=== PATIENT | female | born 1945 | race Caucasian/White ===

== ENCOUNTER 2024-01-03 09:48 | Inpatient (IN) | payer MEDICARE ==
[2024-01-03 10:53] LABS: Basophils % (A) 0 %; Eosinophils # (A) 0.1 k/uL (0-0.7); Eosinophils % (A) 1 %; HCT 41.4 % (34.0-46.0); HGB 13.8 gm/dL (11.4-16.0); Lymphocytes # (A) 1.3 k/uL (1.0-4.8); Lymphocytes % (A) 12 %; MCH 32.3 pg (25.0-35.0); MCHC 33.4 g/dL (31.0-37.0); MCV 96.7 fL (80.0-100.0); Mean Platelet Volume 8.2; Monocytes # (A) 0.8 k/uL (0-1.0); Monocytes % (A) 7 %; Neutrophils # (A) 8.9 k/uL (1.3-7.7); Neutrophils % (A) 79 %; Platelet Count 242 k/uL (150-450); RBC 4.28 m/uL (3.80-5.40); RDW 13.4 % (11.5-15.5); WBC 11.2 k/uL (3.8-10.6)
--- NOTE | 2024-01-03 10:58 | ED ---
General Adult HPI - General Chief complaint: Skin/Abscess/Foreign Body Stated complaint: Infection Time Seen by Provider: 01/03/24 10:00 Source: patient, EMS, RN notes reviewed, old records reviewed Mode of arrival: EMS - History of Present Illness Initial comments: This is a 78-year-old female who presents to the emergency department from a custodial they noted that she has this scalp mass and there was also some maggots around the mass with a central to the emergency department. Patient is unaware of this patient states occasionally it feels like pins pricking her head but other than that she has no complaints. There is been no history of any fever she denies any chest pain difficulty breathing she denies any cough. She denies any abdominal pain - Related Data Allergies Allergy/AdvReac Type Severity Reaction Status Date / Time magnesium hydroxide Allergy Unknown Verified 01/03/24 11:55 [From Milk of Magnesia] Sulfa (Sulfonamide Allergy Unknown Verified 01/03/24 11:55 Antibiotics) Review of Systems ROS Statement: Those systems with pertinent positive or pertinent negative responses have been documented in the HPI. ROS Other: All systems not noted in ROS Statement are negative. Past Medical History Additional Past Medical History / Comment(s): Pt states no medical hx, take no medications History of Any Multi-Drug Resistant Organisms: None Reported Past Surgical History: Adenoidectomy, Tonsillectomy Past Psychological History: Unable to Obtain General Exam - General Exam Comments Initial Comments: GENERAL: Patient is well-developed and well-nourished. Patient is nontoxic and well- hydrated and is in no acute distress. ENT: Neck is soft and supple. No significant lymphadenopathy is noted. Oropharynx is clear. Moist mucous membranes. Neck has full range of motion without eliciting any pain. Patient has a growth on the right side of her scalp measuring about 2 and half centimeters in diameter and it is pedunculated off the scalp on the parietal region and there are numerous maggots around the mass EYES: The sclera were anicteric and conjunctiva were pink and moist. Extraocular movements were intact and pupils were equal round and reactive to light. Eyelids were unremarkable. PULMONARY: Unlabored respirations. Good breath sounds bilaterally. No audible rales rhonchi or wheezing was noted. CARDIOVASCULAR: There is a regular rate and rhythm without any murmurs gallops or rubs. ABDOMEN: Soft and nontender with normal bowel sounds. SKIN: Skin is clear with no lesions or rashes and otherwise unremarkable. NEUROLOGIC: Patient is alert and oriented x3. Cranial nerves II through XII are grossly intact. Motor and sensory are also intact. Normal speech, volume and content. Symmetrical smile. MUSCULOSKELETAL: Normal extremities with adequate strength and full range of motion. LYMPHATICS: No significant lymphadenopathy is noted PSYCHIATRIC: Normal psychiatric evaluation. Course Vital Signs 01/03/24 09:56 Temperature 99.2 F Pulse Rate 96 Respiratory 18 Rate Blood Pressure 149/78 O2 Sat by Pulse 99 Oximetry Medical Decision Making - Medical Decision Making Was pt. sent in by a medical professional or institution (, JOVANI, PROPERTY MANAGEMENT ASSISTANT, urgent care, hospital, or custodial...) When possible be specific @ -detention sent the patient in Did you speak to anyone other than the patient for history (EMS, parent, family, police, friend...)? What history was obtained from this source @ -No Did you review nursing and triage notes (agree or disagree)? Why? @ -I reviewed and agree with nursing and triage notes Were old charts reviewed (outside hosp., previous admission, EMS record, old EKG, old radiological studies, urgent care reports/EKG's, custodial records)? Report findings @ -No old charts were reviewed Differential Diagnosis? @ -Chest pain, altered mental status, abdominal pain women, abdominal pain men, vaginal bleeding, weakness, fever, dyspnea, syncope, headache, dizziness, GI bleed, back pain, seizure, CVA, palpatations, mental health, musculoskeletal EKG interpreted by me (3pts min.). @ -As above X-rays interpreted by me (1pt min.). @ -None done CT interpreted by me (1pt min.). @ -None done U/S interpreted by me (1pt. min.). @ -None done What testing was considered but not performed or refused? (CT, X-rays, U/S, labs)? Why? @ -None What meds were considered but not given or refused? Why? @ -None Did you discuss the management of the patient with other professionals (professionals i.e. JOVANI Vides, PROPERTY MANAGEMENT ASSISTANT, lab, RT, psych nurse, psychiatric social worker, body make up artist, teacher, control officer manager, mental health case manager)? Give summary @ -I spoke with Dr. Recinos and he agreed to admit the patient admit the patient consulted medicine Was smoking cessation discussed for >3mins.? @ -No Was critical care preformed (if so, how long)? @ -No Were there social determinants of health that impacted care today? How? (Homelessness, low income, unemployed, alcoholism, drug addiction, transp ortation, low edu. Level, literacy, decrease access to med. care, [facility], rehab)? @ -No Was there de-escalation of care discussed even if they declined (Discuss DNR or withdrawal of care, Hospice)? DNR status @ -No What co-morbidities impacted this encounter? (DM, HTN, Smoking, COPD, CAD, Cancer, CVA, ARF, Chemo, Hep., AIDS, mental health diagnosis, sleep apnea, morbid obesity)? @ -None Was patient admitted / discharged? Hospital course, mention meds given and route, prescriptions, significant lab abnormalities, going to OR and other pertinent info. @ -Patient has a pedunculated scalp mass on the right side in the parietal region. The mass is inundated with maggots I spoke with the surgeon on-call and he agreed to admit the patient and asked for medicine to be consulted Undiagnosed new problem with uncertain prognosis? @ -No Drug Therapy requiring intensive monitoring for toxicity (Heparin, Nitro, Insulin, Cardizem)? @ -No Were any procedures done? @ -No Diagnosis/symptom? @ -Pedunculated scalp mass Acute, or Chronic, or Acute on Chronic? @ -Acute on chronic Uncomplicated (without systemic symptoms) or Complicated (systemic symptoms)? @ -Complicated Side effects of treatment? @ -No Exacerbation, Progression, or Severe Exacerbation? @ -No Poses a threat to life or bodily function? How? (Chest pain, USA, GA, pneumonia, PE, COPD, DKA, ARF, appy, cholecystitis, CVA, Diverticulitis, Homicidal, Suicidal, threat to staff... and all critical care pts) @ -No - Lab Data Result diagrams: 01/03/24 10:25 01/03/24 10:25 Lab Results 01/03/24 01/03/24 01/03/24 Range/Units 10:25 10:25 10:25 WBC 11.2 H (3.8-10.6) k/uL RBC 4.28 (3.80-5.40) m/uL Hgb 13.8 (11.4-16.0) gm/dL Hct 41.4 (34.0-46.0) % MCV 96.7 (80.0-100.0) fL MCH 32.3 (25.0-35.0) pg MCHC 33.4 (31.0-37.0) g/dL RDW 13.4 (11.5-15.5) % Plt Count 242 (150-450) k/uL MPV 8.2 Neutrophils % 79 % Lymphocytes % 12 % Monocytes % 7 % Eosinophils % 1 % Basophils % 0 % Neutrophils # 8.9 H (1.3-7.7) k/uL Lymphocytes # 1.3 (1.0-4.8) k/uL Monocytes # 0.8 (0-1.0) k/uL Eosinophils # 0.1 (0-0.7) k/uL Basophils # 0.0 (0-0.2) k/uL Sodium 134 L (137-145) mmol/L Potassium 4.2 (3.5-5.1) mmol/L Chloride 101 (98-107) mmol/L Carbon Dioxide 26 (22-30) mmol/L Anion Gap 7 mmol/L BUN 12 (7-17) mg/dL Creatinine 0.66 (0.52-1.04) mg/dL Est GFR (CKD-EPI)AfAm >90 (>60 ml/min/1.73 sqM) Est GFR (CKD-EPI)NonAf 86 (>60 ml/min/1.73 sqM) Glucose 95 (74-99) mg/dL Plasma Lactic Acid Ramírez 1.7 (0.7-2.0) mmol/L Calcium 9.4 (8.4-10.2) mg/dL Total Bilirubin 1.2 (0.2-1.3) mg/dL AST 28 (14-36) U/L ALT 15 (4-34) U/L Alkaline Phosphatase 77 (38-126) U/L Total Protein 7.5 (6.3-8.2) g/dL Albumin 4.4 (3.5-5.0) g/dL Disposition Clinical Impression: Scalp mass, Infestation, maggots Disposition: ADMITTED IP TO THIS HOSP Referrals: None,Stated [REFERRING] - 1-2 days Time of Disposition: 12:53
[2024-01-03 11:10] LABS: ALT 15 U/L (4-34); AST 28 U/L (14-36); African American GFR (CKD) >90 (>60 ml/min/1.73 sqM); Albumin 4.4 g/dL (3.5-5.0); Alkaline Phosphatase 77 U/L (38-126); Anion Gap 7 mmol/L; Blood Urea Nitrogen 12 mg/dL (7-17); Calcium 9.4 mg/dL (8.4-10.2); Carbon Dioxide 26 mmol/L (22-30); Chloride 101 mmol/L (98-107); Glucose 95 mg/dL (74-99); Non-African American GFR(CKD) 86 (>60 ml/min/1.73 sqM); Potassium 4.2 mmol/L (3.5-5.1); Sodium 134 mmol/L (137-145); Total Bilirubin 1.2 mg/dL (0.2-1.3); Total Protein 7.5 g/dL (6.3-8.2)
--- NOTE | 2024-01-03 19:13 | P.GSHP ---
History of Present Illness H&P Date: 01/03/24 - History of Present Illness This is a 78-year-old female who presents to the emergency department from a residential after they noted that she has this scalp mass and there was also some maggots around the mass with a central to the emergency department. Patient is unaware of this patient states occasionally it feels like pins pricking her head but other than that she has no complaints. There is been no history of any fever, she denies any chest pain, denies difficulty breathing, and she denies any cough. She denies any abdominal pain Review of Systems ROS Statement: Those systems with pertinent positive or pertinent negative responses have been documented in the HPI. ROS Other: All systems not noted in ROS Statement are negative. Past Medical History Additional Past Medical History / Comment(s): Pt states no medical hx, take no medications History of Any Multi-Drug Resistant Organisms: None Reported Past Surgical History: Adenoidectomy, Tonsillectomy Past Psychological History: Unable to Obtain General Exam - General Exam Comments Initial Comments: GENERAL: Patient is well-developed and well-nourished. Patient is nontoxic and well- hydrated and is in no acute distress. ENT: Neck is soft and supple. No significant lymphadenopathy is noted. Oropharynx is clear. Moist mucous membranes. Neck has full range of motion without eliciting any pain. Patient has a growth on the right side of her scalp measuring about 2 and half centimeters in diameter and it is pedunculated off the scalp on the parietal region and there are numerous maggots around the mass EYES: The sclera were anicteric and conjunctiva were pink and moist. Extraocular movements were intact and pupils were equal round and reactive to light. Eyelids were unremarkable. PULMONARY: Unlabored respirations. Good breath sounds bilaterally. No audible rales rhonchi or wheezing was noted. CARDIOVASCULAR: There is a regular rate and rhythm without any murmurs gallops or rubs. ABDOMEN: Soft and nontender with normal bowel sounds. SKIN: Friable Scalp Mass. NEUROLOGIC: Patient is alert and oriented x3. Cranial nerves II through XII are grossly intact. Motor and sensory are also intact. Normal speech, volume and content. Symmetrical smile. MUSCULOSKELETAL: Normal extremities with adequate strength and full range of motion. LYMPHATICS: No significant lymphadenopathy is noted PSYCHIATRIC: Normal psychiatric evaluation. 78 year old female with friable scalp mass concerning for malignancy - Scalp was thoroughly cleaned and washed off - Regular Diet - Possible surgical biopsy during this admission - Medicine consult for medical management Past Medical History Additional Past Medical History / Comment(s): Pt states no medical hx, take no medications History of Any Multi-Drug Resistant Organisms: None Reported Past Surgical History: Adenoidectomy, Tonsillectomy Past Psychological History: Unable to Obtain Smoking Status: Never smoker Past Alcohol Use History: None Reported Past Drug Use History: None Reported Medications and Allergies Home Medications Medication Instructions Recorded Confirmed Type Haloperidol Decanoate [Haldol D] 50 mg IM Q30D 01/03/24 01/03/24 History Losartan [Cozaar] 25 mg PO DAILY 01/03/24 01/03/24 History Vitamin B-12 100mcg Tab 100 mcg PO DAILY 01/03/24 01/03/24 History Allergies Allergy/AdvReac Type Severity Reaction Status Date / Time magnesium hydroxide Allergy Unknown Verified 01/03/24 13:05 [From Milk of Magnesia] Sulfa (Sulfonamide Allergy Unknown Verified 01/03/24 13:05 Antibiotics) Surgical - Exam Vital Signs Temp Pulse Resp BP Pulse Ox 99.2 F 96 18 149/78 99 01/03/24 09:56 01/03/24 09:56 01/03/24 09:56 01/03/24 09:56 01/03/24 09:56 Results - Labs 01/03/24 10:25 01/03/24 10:25 Abnormal Lab Results - Last 24 Hours (Table) 01/03/24 01/03/24 Range/Units 10:25 10:25 WBC 11.2 H (3.8-10.6) k/uL Neutrophils # 8.9 H (1.3-7.7) k/uL Sodium 134 L (137-145) mmol/L Diabetes panel 01/03/24 Range/Units 10:25 Sodium 134 L (137-145) mmol/L Potassium 4.2 (3.5-5.1) mmol/L Chloride 101 (98-107) mmol/L Carbon Dioxide 26 (22-30) mmol/L BUN 12 (7-17) mg/dL Creatinine 0.66 (0.52-1.04) mg/dL Glucose 95 (74-99) mg/dL Calcium 9.4 (8.4-10.2) mg/dL AST 28 (14-36) U/L ALT 15 (4-34) U/L Alkaline Phosphatase 77 (38-126) U/L Total Protein 7.5 (6.3-8.2) g/dL Albumin 4.4 (3.5-5.0) g/dL Calcium panel 01/03/24 Range/Units 10:25 Calcium 9.4 (8.4-10.2) mg/dL Albumin 4.4 (3.5-5.0) g/dL Pituitary panel 01/03/24 Range/Units 10:25 Sodium 134 L (137-145) mmol/L Potassium 4.2 (3.5-5.1) mmol/L Chloride 101 (98-107) mmol/L Carbon Dioxide 26 (22-30) mmol/L BUN 12 (7-17) mg/dL Creatinine 0.66 (0.52-1.04) mg/dL Glucose 95 (74-99) mg/dL Calcium 9.4 (8.4-10.2) mg/dL Adrenal panel 01/03/24 Range/Units 10:25 Sodium 134 L (137-145) mmol/L Potassium 4.2 (3.5-5.1) mmol/L Chloride 101 (98-107) mmol/L Carbon Dioxide 26 (22-30) mmol/L BUN 12 (7-17) mg/dL Creatinine 0.66 (0.52-1.04) mg/dL Glucose 95 (74-99) mg/dL Calcium 9.4 (8.4-10.2) mg/dL Total Bilirubin 1.2 (0.2-1.3) mg/dL AST 28 (14-36) U/L ALT 15 (4-34) U/L Alkaline Phosphatase 77 (38-126) U/L Total Protein 7.5 (6.3-8.2) g/dL Albumin 4.4 (3.5-5.0) g/dL
[2024-01-04] MEDS ORDERED: NALOXONE 0.4 MG/ML 1 ML VIAL IV PRN (11:44)
[2024-01-04] MEDS ORDERED: HYDROmorphone 1 MG/ML 1 ML SYRINGE IVP PRN (11:44)
[2024-01-04] MEDS ORDERED: ONDANSETRON 4 MG/2 ML VIAL IVP PRN (11:44)
--- NOTE | 2024-01-04 11:49 | P.PN ---
Subjective Progress Note Date: 01/04/24 Patient has soft tissue tumor 3 cm along the right parietal lobe easily friable. Patient reports she has not seen her developer programmer in many years. No pre- existing history of cancer. She reports been ongoing for several months easily friable. Do recommend excisional biopsy. Presentation highly suspicious for underlying malignancy. Oncology consulted. As patient had full meal this morning, resection for tomorrow described. Medical management. Objective - Vital Signs Vital signs: Vital Signs Temp 98.1 F 01/04/24 07:00 Pulse 89 01/04/24 08:00 Resp 17 01/04/24 08:00 BP 132/76 01/04/24 07:00 Pulse Ox 98 01/04/24 07:00 FiO2 Intake & Output 01/03/24 01/04/24 01/04/24 18:59 06:59 18:59 Weight 58.967 kg Other: # Voids 1 - Labs CBC & Chem 7: 01/03/24 10:25 01/03/24 10:25 Labs: Microbiology - Last 24 Hours (Table) 01/03/24 10:40 Blood Culture Gram Stain - Preliminary Blood 01/03/24 10:25 Blood Culture Gram Stain - Preliminary Blood Blood Culture - Preliminary Molecular ID
[2024-01-04] MEDS: D5-0.45% NACL WITH KCL 20MEQ/L 1,000 ML IV SCH (15:36)
--- NOTE | 2024-01-04 17:24 | P.CONS ---
History of Present Illness - Reason for Consult Consult date: 01/03/24 Medical management Requesting physician: Joaquim Recinos - Chief Complaint Scalp lesion - History of Present Illness This is a 78-year-old patient I saw in the ER yesterday. Patient is a resident of [facility]. She has had a lesion on the scalp for more than a month. Often times when she would shampoo or take a shower it would bleed. She was sent in yesterday because she was having increasing bleeding. Pus was noted and maggots were coming out. This was washed in the ER. She has some history of psychiatry diagnosis for which she takes haloperidol. Patient denies any fever and chills. No sick no significant pain. Has a fair diet. No change in bowel pattern. Was bleeding locally. Review of systems: GEN.: None EYES: None HEENT: [Scalp lesion NECK: None RESPIRATORY: None CARDIOVASCULAR: None GASTROINTESTINAL: None GENITOURINARY: None MUSCULOSKELETAL: Joint pains LYMPHATICS: None HEMATOLOGICAL: None PSYCHIATRY: None NEUROLOGICAL: None Social history: Lives at [facility]. Does have a cane. No smoking no alcohol Physical examination: VITAL SIGNS: 99.2, 96, 18, 149/78, 99% room air GENERAL: [BMI 24.6, reclining in bed. EYES: Pupils equal. Conjunctiva josé l. HEENT: External appearance of nose and ears normal, oral cavity grossly normal. Friable mass on top of the head on the right side. Some maggots noted to be crawling. Some bleeding bleeding. NECK: JVD not raised; masses not palpable. HEART: First and second heart sounds are normal; no edema. LUNGS: Respiratory rate normal; clear to auscultation. ABDOMEN: Soft, nontender, liver spleen not palpable, no masses palpable. PSYCH: Alert and oriented x3; mood and affect josé l. MUSCULOSKELETAL:No Clubbing/cyanosis;muscles-grossly intact. OA NEUROLOGICAL: Cranial nerves grossly intact; no facial asymmetry, power and sensation grossly intact. LYMPHATICS: No lymph nodes palpable in the axilla and neck INVESTIGATIONS, reviewed in the clinical context: January 02: White count 11.2 hemoglobin 13.8 platelets 242 sodium 134 potassium 4.2 creatinine 0.66 Assessment plan: -Has a friable mass on the right skull 6 soft bleeding with maggots in it. Repo rted to be about over 1 month duration. Has been bleeding intermittently. Clinically appears to be fungating cauliflower-like. This could be squamous cell. Will need a surgical excision with clean base to get the margins and to be sent for histology pathology -Secondary maggot infestation of the growth on the scalp -History of psychiatric illness. Diagnosis unknown. Patient does take help at all scheduled every month -Primary osteoarthritis Tylenol as needed -Full code -Chronic gait dysfunction uses a cane Care was discussed with the patient. Questions answered. Medically stable to proceed for excision biopsy of the mass. Thank you Past Medical History Additional Past Medical History / Comment(s): Pt states no medical hx, take no medications History of Any Multi-Drug Resistant Organisms: None Reported Past Surgical History: Adenoidectomy, Tonsillectomy Past Psychological History: Unable to Obtain Smoking Status: Never smoker Past Alcohol Use History: None Reported Past Drug Use History: None Reported Medications and Allergies Home Medications Medication Instructions Recorded Confirmed Type Haloperidol Decanoate [Haldol D] 50 mg IM Q30D 01/03/24 01/03/24 History Losartan [Cozaar] 25 mg PO DAILY 01/03/24 01/03/24 History Vitamin B-12 100mcg Tab 100 mcg PO DAILY 01/03/24 01/03/24 History Allergies Allergy/AdvReac Type Severity Reaction Status Date / Time Beef Containing Products Allergy Unknown Verified 01/04/24 07:31 [Beef] chicken derived [Chicken] Allergy Unknown Verified 01/04/24 07:31 magnesium hydroxide Allergy Unknown Verified 01/03/24 13:05 [From Milk of Magnesia] milk Allergy Unknown Verified 01/04/24 07:31 Milk Containing Products Allergy Unknown Verified 01/04/24 07:31 (Dairy) Sulfa (Sulfonamide Allergy Unknown Verified 01/03/24 13:05 Antibiotics) Physical Exam Vitals: Vital Signs Temp Pulse Pulse Resp BP BP Pulse Ox 01/04/24 13:37 98.1 F 66 17 118/79 97 01/04/24 08:00 89 17 01/04/24 07:00 98.1 F 89 17 132/76 98 01/04/24 02:26 97.7 F 65 16 111/72 98 01/03/24 21:01 98.5 F 80 16 112/73 98 01/03/24 20:00 16 01/03/24 15:58 98.1 F 83 16 125/71 98 01/03/24 15:00 98.3 F 85 146/74 99 Intake and Output 01/03/24 01/04/24 01/04/24 22:59 06:59 14:59 Other: # Voids 1 1 Weight 58.967 kg Results CBC & Chem 7: 01/03/24 10:25 01/03/24 10:25 Labs: Microbiology - Last 24 Hours (Table) 01/03/24 10:40 Blood Culture Gram Stain - Preliminary Blood 01/03/24 10:25 Blood Culture Gram Stain - Preliminary Blood Blood Culture - Preliminary Molecular ID
--- NOTE | 2024-01-04 17:26 | P.PN ---
Progress Note - Text Progress Note Date: 01/04/24 - Chief Complaint Scalp lesion - History of Present Illness This is a 78-year-old patient I saw in the ER yesterday. Patient is a resident of [facility]. She has had a lesion on the scalp for more than a month. Often times when she would shampoo or take a shower it would bleed. She was sent in yesterday because she was having increasing bleeding. Pus was noted and maggots were coming out. This was washed in the ER. She has some history of psychiatry diagnosis for which she takes haloperidol. Patient denies any fever and chills. No sick no significant pain. Has a fair diet. No change in bowel pattern. Was bleeding locally. January 03: Resting in bed. Comfortable. Intermittent bleeding in the scalp mass. For excision biopsy tomorrow. Tolerating diet. Active Medications Acetaminophen (Acetaminophen Tab 325 Mg Tab) 650 mg PO Q6HR PRN PRN Reason: Mild Pain or Fever >= 100.5 Heparin Sodium (Porcine) (Heparin Sodium,Porcine 5,000 Unit/Ml 1 Ml Vial) 5,000 unit SQ Q12HR [facility] Hydromorphone HCl (Hydromorphone 1 Mg/Ml 1 Ml Syringe) 1 mg IVP Q4HR PRN PRN Reason: Severe Pain (Scale 7 to 10) Ceftriaxone Sodium 2 gm/ (Sodium Chloride) 50 mls @ 100 mls/hr IVPB Q24HR [facility]; Protocol Last Admin: 01/04/24 09:03 Dose: 100 mls/hr Potassium Chloride/Dextrose/Sod Cl (D5%-1/2ns-Kcl 20 Meq/L Iv Solution) 1,000 mls @ 75 mls/hr IV .[id number] [facility] Last Admin: 01/04/24 15:36 Dose: 75 mls/hr Losartan Potassium (Losartan 25 Mg Tab) 25 mg PO DAILY [facility] Naloxone HCl (Naloxone 0.4 Mg/Ml 1 Ml Vial) 0.2 mg IV Q2M PRN PRN Reason: Opioid Reversal Ondansetron HCl (Ondansetron 4 Mg/2 Ml Vial) 4 mg IVP Q6HR PRN PRN Reason: Nausea And Vomiting Social history: Lives at [facility]. Does have a cane. No smoking no alcohol Physical examination: VITAL SIGNS: 98.1, 83, 16, 125/71, 98% room air GENERAL: [BMI 24.6, reclining in bed. EYES: Pupils equal. Conjunctiva josé l. HEENT: External appearance of nose and ears normal, oral cavity grossly normal. Friable mass on top of the head on the right side. Some maggots noted to be crawling. Some bleeding bleeding. NECK: JVD not raised; masses not palpable. HEART: First and second heart sounds are normal; no edema. LUNGS: Respiratory rate normal; clear to auscultation. ABDOMEN: Soft, nontender, liver spleen not palpable, no masses palpable. PSYCH: Alert and oriented x3; mood and affect josé l. MUSCULOSKELETAL:No Clubbing/cyanosis;muscles-grossly intact. OA INVESTIGATIONS, reviewed in the clinical context: January 02: White count 11.2 hemoglobin 13.8 platelets 242 sodium 134 potassium 4.2 creatinine 0.66 Assessment plan: -Has a friable mass on the right skull 6 soft bleeding with maggots in it. Reported to be about over 1 month duration. Has been bleeding intermittently. Clinically appears to be fungating cauliflower-like. This could be squamous cell. Will need a surgical excision with clean base to get the margins and to be sent for histology pathology -Secondary maggot infestation of the growth on the scalp -History of psychiatric illness. Diagnosis unknown. Patient does take help at all scheduled every month -Primary osteoarthritis Tylenol as needed -Full code -Chronic gait dysfunction uses a cane Discussed with patient. Stable to proceed for excision biopsy will need a good margin around the same for excision Thank you Past Medical History Additional Past Medical History / Comment(s): Pt states no medical hx, take no medications History of Any Multi-Drug Resistant Organisms: None Reported Past Surgical History: Adenoidectomy, Tonsillectomy Past Psychological History: Unable to Obtain Smoking Status: Never smoker Past Alcohol Use History: None Reported Past Drug Use History: None Reported
[2024-01-04] MEDS: HEPARIN SODIUM,PORCINE 5,000 UNIT/ML 1 ML VIAL SQ SCH (20:13)
[2024-01-05] MEDS: LOSARTAN 25 MG TAB PO SCH (10:09)
[2024-01-05 10:48] LABS: Basophils # (A) 0.02 X 10*3/uL (0.00-0.10); Basophils % (A) 0.4 %; Eosinophils # (A) 0.18 X 10*3/uL (0.04-0.35); Eosinophils % (A) 3.8 %; HCT 37.8 % (37.2-46.3); HGB 12.6 g/dL (12.0-15.0); MCHC 33.3 g/dL (32.0-37.0); MCV 95.9 FL (80.0-97.0); Mean Platelet Volume 10.7 FL (9.5-12.2); Monocytes # (A) 0.57 X 10*3/uL (0.20-1.00); Monocytes % (A) 11.9 %; NRBC Per 100 WBC 0 X 10*3/uL (0.00-0.01); Neutrophils # (A) 1.71 X 10*3/uL (1.80-7.70); Neutrophils % (A) 35.7 %; Platelet Count 250 X 10*3/uL (140-440); RBC 3.94 X 10*6/uL (4.10-5.20); RDW 13.2 % (11.5-14.5); WBC 4.79 X 10*3/uL (4.50-10.00)
[2024-01-05] MEDS: IV FLUID CONTINUATION 1,000 ML IV ONE (16:32)
[2024-01-05] MEDS: LACTATED RINGERS 1,000 ML BAG IV STA (16:33)
--- NOTE | 2024-01-05 16:56 | P.PN ---
Subjective Progress Note Date: 01/05/24 CHIEF COMPLAINT: Tumor of the head HISTORY OF PRESENT ILLNESS: The patient is a 78-year-old female admitted due to putrid wound of the right parietal scalp. Per records, patient had maggots along her wound. Clinical features are highly suspicious for cancer. Her nurse gave me the telephone number for daughter Bertha who is in [place] [phone]. All questions were discussed regarding clinical presentations of her mother and surgical options. ROS: No reports of nausea and vomiting. No bowel movements. No fevers or chills. No new chest pain. No productive sputum PHYSICAL EXAM: VITAL SIGNS: Reviewed CONSTITUTIONAL: Well developed and in no acute distress. EYES: Conjuctivae without sclera icterus. Extraocular movements grossly intact. HEAD, EARS, NOSE, THROAT: Moist buccal mucosa. Head is atraumatic, normocephalic. Hears conversational speech. No nasal drainage. 4 x 2 cm fungating ulcerative mass along the right parietal scalp. RESPIRATORY: Non-labored respirations and equal bilateral excursions. CARDIOVASCULAR: Palpable 2+ radial pulses. ABDOMEN: Nontender MUSCULOSKELETAL: No gross deformity of the lower extremities noted. No clubbing. No cyanosis. SKIN: Good skin turgor. Well perfused. NEUROLOGIC: Cranial nerves II through XII grossly intact. No focal or lateral izing signs. PSYCH: Appropriate affect. Alert and oriented to person, place and time. CLINICAL LABS: Reviewed. WBC normal ASSESSMENT: 1. 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 Oncology consulted for malignancy 2. Discussion with daughter including excisional biopsy described. 3. Definitive therapy pending results of pathology which may warrant further re section 4. Benefits risk of procedure described 5. Patient may have regular diet after procedure. Objective - Vital Signs Vital signs: Vital Signs Temp 98.6 F 01/05/24 16:30 Pulse 65 01/05/24 16:30 Resp 16 01/05/24 16:30 BP 137/62 01/05/24 16:30 Pulse Ox 96 01/05/24 16:30 FiO2 Intake & Output 01/04/24 01/05/24 01/05/24 18:59 06:59 18:59 Intake Total 0 Balance 0 Weight 58.967 kg Intake: Oral 0 Other: # Voids 3 0 0 # Bowel Movements 1 - Labs CBC & Chem 7: 01/05/24 07:06 01/03/24 10:25 Labs: Abnormal Lab Results - Last 24 Hours (Table) 01/05/24 Range/Units 07:06 RBC 3.94 L (4.10-5.20) X 10*6/uL Neutrophils # 1.71 L (1.80-7.70) X 10*3/uL Microbiology - Last 24 Hours (Table) 01/03/24 10:40 Blood Culture Gram Stain - Preliminary Blood Blood Culture - Preliminary Providencia rettgeri 01/03/24 10:25 Blood Culture Gram Stain - Preliminary Blood Blood Culture - Preliminary Providencia rettgeri Group D Enterococcus Molecular ID
[2024-01-05] MEDS ORDERED: fentaNYL (PF) 50 MCG/ML 2 ML AMP ONE (17:10)
[2024-01-05] MEDS ORDERED: LIDOCAINE 1% INJ 10MG/ML (20 ML MDV) ONE (17:10)
[2024-01-05] MEDS ORDERED: ceFAZolin 1 GM/50 ML BAG (PMX) ONE (17:10)
[2024-01-05] MEDS ORDERED: PROPOFOL 10 MG/ML 20 ML VIAL IV ONE (17:10)
[2024-01-05] MEDS ORDERED: PHENYLEPHRINE-0.9% NACL SYG 1,000 MCG/10 ML SYRINGE ONE (17:10)
[2024-01-05] MEDS: SODIUM CHLORIDE 0.9% 50 ML with ceFAZolin 2,000 MG IV ONE (17:37)
[2024-01-05] MEDS: LIDOCAINE 1%-EPI 1:100,000 20 ML VIAL SQ ONE (17:57)
[2024-01-05] MEDS: LACTATED RINGERS 1,000 ML IV ONE (18:24)
[2024-01-05] MEDS: BACITRACIN ZINC 500 UNIT/GM OINT 28.4 GM TUBE TOPICAL ONE (18:47)
--- NOTE | 2024-01-05 19:18 | P.OP ---
Date of Procedure: 01/05/24 Description of Procedure: SURGEON: BARBARA LAKHANI MD PREOPERATIVE DIAGNOSES: 1. Right parietal fungating mass with abscess, 3 cm 2. Dementia 3. Hypertensive heart disease 4. Leukocytosis on admission POSTOPERATIVE DIAGNOSES: 1. Right parietal fungating mass with abscess, 3 cm 2. Dementia 3. Hypertensive heart disease 4. Leukocytosis on admission PROCEDURES PERFORMED: 1. Excision of right parietal scalp tumor, 6 x 3 cm, subcutaneous with complex closure, 6 cm Anesthesia: GETA, local Estimated Blood Loss (ml): 75 Pathology: other (scalp mass) Condition: stable COMPLICATIONS: None. Operative Findings: 1. Fungating easily friable right parietal scalp tumor 3 cm excised. 2. Borders of 1 cm and 0.5 cm obtained for excision of mass 3. Long anterior, short posterior suture for orientation 4. Daughter Bertha contacted [phone] with images sent INDICATIONS: The patient is a 78-year-old female who presented to the hospital with large fungating necrotic tumor of the right parietal with maggots. Patient reports pain and discomfort from the wound. She has had no prior workup. Excision of the mass due to pain and infection was described. Consent was obtained by her daughter Bertha with benefits and Ris described. DESCRIPTION OR PROCEDURE: In the preoperative area, the area of concern was marked with indelible marker. Patient was brought into the operating room. After general induction, he was positioned in supine position. The scalp was prepped and draped in a standard sterile fashion initially prepped with Betadine and then cleanse with chlorhexidine scrub. Timeout protocol was confirmed with the surgical team regarding the patient's name, procedure to be performed including preoperative medications. DVT prophylaxis was confirmed. A field block was placed of the right parietal scalp. A transverse elliptical incision using #15 blade was made along the marking into the deep subcutaneous tissue to the fascia. The tumor extended to the subcutaneous tissue without involvement of the fascia grossly. Electro-Bovie cautery was used to incise to the fascia with dissection and elevation of the mass. Wide undermining was performed for closure of the defect 6 x 3 cm. 3-0 Vicryl for the deep subcutaneous tissue was placed. Running 2-0 nylon was placed with interrupted 4-0 Prolene. The scalp and incision was cleansed with baby soap. The skin was cleansed with hydrogen peroxide followed by bacitracin ointment along the closure. Compressive dressing using mesh underwear and 4 x 4 gauze was placed At the end of the procedure, needle, sponge, and instrument count was verified correct by flight test data acquisition technician. The patient tolerated the procedure well. The patient alexey Stone was immediately contacted with images sent.
--- NOTE | 2024-01-05 19:51 | P.PN ---
Subjective Progress Note Date: 01/05/24 - Chief Complaint Scalp lesion - History of Present Illness This is a 78-year-old patient I saw in the ER yesterday. Patient is a resident of [facility]. She has had a lesion on the scalp for more than a month. Often times when she would shampoo or take a shower it would bleed. She was sent in yesterday because she was having increasing bleeding. Pus was noted and maggots were coming out. This was washed in the ER. She has some history of psychiatry diagnosis for which she takes haloperidol. Patient denies any fever and chills. No sick no significant pain. Has a fair diet. No change in bowel pattern. Was bleeding locally. January 03: Resting in bed. Comfortable. Intermittent bleeding in the scalp mass. For excision biopsy tomorrow. Tolerating diet. 01/05/2024 Patient is seen in follow-up currently n.p.o. as patient is scheduled to undergo excisional biopsy of the scalp lesion. Continue with local wound care per surgery and resume diet once cleared. Patient is currently afebrile with no reports of chest pain or shortness of breath. No reported nausea or vomiting and patient had been tolerating diet. Patient is medically stable and recommend biopsy being sent for pathology. We will continue to follow with general surgery. Review of systems: Constitutional: No reports of fatigue, fever, or chills Cardiovascular: No reports of chest pain or palpitations Respiratory: No reports of shortness of breath or cough GI: No reports of nausea, vomiting, or diarrhea : No reports of dysuria or retention Neurovascular: No reports of weakness or numbness All medications have been reviewed Physical examination: VITAL SIGNS: Stable GENERAL: This is a 78-year-old female who is awake, alert and oriented x 2, baseline, well-developed, elderly appearing EYES: Pupils equal. Conjunctiva normal. HEENT: External appearance of nose and ears normal, oral cavity grossly normal. Friable mass on top of the head on the right side. NECK: JVD not raised; masses not palpable. HEART: S1, S2 are muffled LUNGS: Respiratory rate normal; clear to auscultation with no wheezing or rhonchi noted. ABDOMEN: Soft, nontender, positive bowel sounds noted PSYCH: Alert and oriented x3; mood and affect normal. MUSCULOSKELETAL:No Clubbing/cyanosis;muscles-grossly intact. OA Assessment: -friable mass on the right skull, with some bleeding and maggots in it. Present on admission. Reported to be about over 1 month duration. Has been bleeding intermittently. Clinically appears to be fungating cauliflower-like. This could be squamous cell. -Secondary maggot infestation of the growth on the scalp -History of psychiatric illness. Diagnosis unknown. -Primary osteoarthritis -GI prophylaxis -DVT prophylaxis -Full code -Chronic gait dysfunction uses a cane Plan: Patient is currently n.p.o. with general surgery planning on excisional intervention of the scalp lesion. Will be sent for pathology Recommend follow-up labs in the a.m. and replace electrolytes per protocol Continue local wound care per general surgery We will continue to follow with general surgery during hospitalization. Thank you kindly for this consultation. The impression and plan of care has been dictated by Vale Melvin, Nurse Practitioner as directed. Dr. Vidya MD I have performed a history and examination and MDM of this patient, discussed the same with the dictator, and agree with the dictator's assessment and plan as written ,documented as a scribe. Based on total visit time, I have performed more than 50% of the visit. Objective - Vital Signs Vital signs: Vital Signs Temp 98.0 F 01/05/24 07:00 Pulse 73 01/05/24 07:00 Resp 16 01/05/24 07:00 BP 147/70 01/05/24 07:00 Pulse Ox 98 01/05/24 07:00 FiO2 Intake & Output 01/04/24 01/05/24 01/05/24 18:59 06:59 18:59 Intake Total 0 Balance 0 Intake: Oral 0 Other: # Voids 3 0 - Labs CBC & Chem 7: 01/05/24 07:06 01/03/24 10:25 Labs: Abnormal Lab Results - Last 24 Hours (Table) 01/05/24 Range/Units 07:06 RBC 3.94 L (4.10-5.20) X 10*6/uL Neutrophils # 1.71 L (1.80-7.70) X 10*3/uL Microbiology - Last 24 Hours (Table) 01/03/24 10:40 Blood Culture Gram Stain - Preliminary Blood
[2024-01-06] MEDS: ACETAMINOPHEN TAB 325 MG TAB PO PRN (00:15)
[2024-01-06] MEDS ORDERED: HYDROmorphone 0.5 MG/0.5 ML SYRINGE IVP PRN (07:00)
[2024-01-06 10:32] LABS: Basophils # (A) 0.03 X 10*3/uL (0.00-0.10); Basophils % (A) 0.4 %; Eosinophils # (A) 0.13 X 10*3/uL (0.04-0.35); Eosinophils % (A) 1.7 %; HCT 36.1 % (37.2-46.3); HGB 12.1 g/dL (12.0-15.0); Lymphocytes # (A) 2.57 X 10*3/uL (0.90-5.00); Lymphocytes % (A) 34.5 %; MCH 32.2 pg (27.0-32.0); MCHC 33.5 g/dL (32.0-37.0); Mean Platelet Volume 11.1 FL (9.5-12.2); Monocytes # (A) 0.97 X 10*3/uL (0.20-1.00); NRBC Per 100 WBC 0 X 10*3/uL (0.00-0.01); Neutrophils # (A) 3.73 X 10*3/uL (1.80-7.70); Neutrophils % (A) 50.3 %; Platelet Count 218 X 10*3/uL (140-440); RBC 3.76 X 10*6/uL (4.10-5.20); RDW 13.1 % (11.5-14.5); WBC 7.44 X 10*3/uL (4.50-10.00)
[2024-01-06] MEDS: PIPERACILLIN-TAZOBACTAM 3.375 GM in SODIUM CHLORIDE 0.9% 100 ML IVPB SCH (11:27)
--- NOTE | 2024-01-06 17:46 | P.CONS ---
History of Present Illness - Reason for Consult Consult date: 01/05/24 scalp mass Requesting physician: Leticia Flower - Chief Complaint scalp mass - History of Present Illness Patient is a 78 year old female who presented to the emergency department from her senior living after they noted that she had a scalp mass and appeared to be infested with maggots. Consult was placed for concern for scalp neoplasm. Patient is scheduled today to undergo excision of mass. Patient reports she noted right-sided scalp mass over the last couple months that would occasionally bleed but she thought this was just a scab. Patient denies any personal history of cancer. Denies unintentional weight loss and night sweats. Labs reviewed, WBC 11.2, hgb 13.8, plts 242,000. Blood cultures positive, IV abx started, ID consulted. Pt is afebrile Review of Systems 10 point ROS is negative except as stated in the HPI Past Medical History Additional Past Medical History / Comment(s): Pt states no medical hx, take no medications History of Any Multi-Drug Resistant Organisms: None Reported Past Surgical History: Adenoidectomy, Tonsillectomy Past Psychological History: Unable to Obtain Smoking Status: Never smoker Past Alcohol Use History: None Reported Past Drug Use History: None Reported Medications and Allergies Home Medications Medication Instructions Recorded Confirmed Type Haloperidol Decanoate [Haldol D] 50 mg IM Q30D 01/03/24 01/03/24 History Losartan [Cozaar] 25 mg PO DAILY 01/03/24 01/03/24 History Vitamin B-12 100mcg Tab 100 mcg PO DAILY 01/03/24 01/03/24 History Allergies Allergy/AdvReac Type Severity Reaction Status Date / Time Beef Containing Products Allergy Unknown Verified 01/04/24 07:31 [Beef] chicken derived [Chicken] Allergy Unknown Verified 01/04/24 07:31 magnesium hydroxide Allergy Unknown Verified 01/03/24 13:05 [From Milk of Magnesia] milk Allergy Unknown Verified 01/04/24 07:31 Milk Containing Products Allergy Unknown Verified 01/04/24 07:31 (Dairy) Sulfa (Sulfonamide Allergy Unknown Verified 01/03/24 13:05 Antibiotics) Physical Exam Vitals: Vital Signs Temp Pulse Resp BP BP Pulse Ox 01/05/24 15:00 98.1 F 60 17 119/72 97 01/05/24 07:00 98.0 F 73 16 147/70 98 01/05/24 02:00 97.5 F L 85 20 155/81 98 01/04/24 20:00 98.6 F 78 20 100/67 95 Intake and Output 01/05/24 01/05/24 01/05/24 06:59 14:59 22:59 Intake Total 0 Balance 0 Intake: Oral 0 Other: # Voids 0 # Bowel Movements 1 - Constitutional General appearance: average body habitus, no acute distress - EENT Eyes: anicteric sclerae, EOMI ENT: hearing grossly normal - Respiratory Respiratory: bilateral: CTA - Cardiovascular Rhythm: regular Heart sounds: normal: S1, S2 - Gastrointestinal General gastrointestinal: soft, no tenderness - Integumentary right sided scalp lesion approx 3cm x 1 cm - Musculoskeletal Musculoskeletal: strength equal bilaterally - Psychiatric Psychiatric: A&O x's 3 Results CBC & Chem 7: 01/06/24 06:40 01/03/24 10:25 Labs: Abnormal Lab Results - Last 24 Hours (Table) 01/05/24 Range/Units 07:06 RBC 3.94 L (4.10-5.20) X 10*6/uL Neutrophils # 1.71 L (1.80-7.70) X 10*3/uL Microbiology - Last 24 Hours (Table) 01/03/24 10:40 Blood Culture Gram Stain - Preliminary Blood Blood Culture - Preliminary Providencia rettgeri 01/03/24 10:25 Blood Culture Gram Stain - Preliminary Blood Blood Culture - Preliminary Providencia rettgeri Group D Enterococcus Molecular ID Assessment and Plan (1) Positive blood culture Current Visit: Yes Status: Acute Priority: High Code(s): R78.81 - BACTEREMIA SNOMED Code(s): 491118557 (2) Scalp mass Current Visit: Yes Status: Acute Priority: High Code(s): R22.0 - LOCALIZED SWELLING, MASS AND LUMP, HEAD SNOMED Code(s): 723190638 Plan: Scalp mass: Scalp mass noted at her ECF and it appeared to be infested with maggots. Patient reports she noted right-sided scalp mass over the last couple months that would occasionally bleed but she thought this was just a scab. Denies any personal history of cancer and denies constitutional symptoms -Scheduled today to undergo excision of mass with Dr. Flower -Discussed findings with patient and concerns for possible malignancy -Will follow up on pathology and provide further recommendation pending biopsy results
--- NOTE | 2024-01-06 22:11 | P.CONS ---
History of Present Illness - Reason for Consult Consult date: 01/06/24 Positive blood culture Requesting physician: Cely Diaz - Chief Complaint Recurrent wound to the right side of the scalp x weeks - History of Present Illness Patient is a 78-year-old female with no significant past medical history not on any medication apparently the patient has been dealing with current wound to the right side of the scalp that has been going on for more than a month patient mention it scabs off but when she washes it daily opens aga in has started to drain with the symptoms the patient has been brought to the hospital about 3 days ago patient was eval by medicine and general surgery and the patient was diagnosed to have a febrile mass possible abscess to the scalp area patient blood cultures came back +2 days ago with gram-negative bacilli as well as group D Enterococcus patient has been treated with Rocephin infectious he was consulted today for further management of antibiotic therapy patient was taken to the OR last night and is s/p right parotid fungating mass with an abscess 3 cm s/p resection and complex closure unfortunately no cultures were done patient currently denies having any fever or any chills patient did not have any fever on presentation to the hospital did have mild dull aching pain without radiation denies any urinary symptoms nausea no vomiting no chest pain shortness of breath or cough no abdominal pain no diarrhea patient presented to the hospital did have a low-grade fever 100.2 subsequent white count normalized creatinine 0.66 electrolytes normal liver enzymes are normal blood culture with providentia and group D Enterococcus Review of Systems Positive point and negatives has been mentioned in the HPI, complete review of systems was performed and all other systems are negative Past Medical History Additional Past Medical History / Comment(s): Pt states no medical hx, take no medications History of Any Multi-Drug Resistant Organisms: None Reported Past Surgical History: Adenoidectomy, Tonsillectomy Past Psychological History: Unable to Obtain Smoking Status: Never smoker Past Alcohol Use History: None Reported Past Drug Use History: None Reported Medications and Allergies Home Medications Medication Instructions Recorded Confirmed Type Haloperidol Decanoate [Haldol D] 50 mg IM Q30D 01/03/24 01/03/24 History Losartan [Cozaar] 25 mg PO DAILY 01/03/24 01/03/24 History Vitamin B-12 100mcg Tab 100 mcg PO DAILY 01/03/24 01/03/24 History Allergies Allergy/AdvReac Type Severity Reaction Status Date / Time Beef Containing Products Allergy Unknown Verified 01/04/24 07:31 [Beef] chicken derived [Chicken] Allergy Unknown Verified 01/04/24 07:31 magnesium hydroxide Allergy Unknown Verified 01/03/24 13:05 [From Milk of Magnesia] milk Allergy Unknown Verified 01/04/24 07:31 Milk Containing Products Allergy Unknown Verified 01/04/24 07:31 (Dairy) Sulfa (Sulfonamide Allergy Unknown Verified 01/03/24 13:05 Antibiotics) Physical Exam Vitals: Vital Signs Temp Pulse Resp BP BP Pulse Ox 01/06/24 07:00 97.5 F L 79 16 164/83 97 01/06/24 00:15 97.9 F 68 17 165/86 94 L 01/05/24 23:53 69 169/84 94 L 01/05/24 22:53 66 177/101 96 01/05/24 21:53 79 147/81 95 01/05/24 21:23 73 131/77 93 L 01/05/24 20:53 65 145/85 94 L 01/05/24 20:39 70 132/58 95 01/05/24 20:23 59 L 119/74 93 L 01/05/24 20:09 60 121/61 93 L 01/05/24 19:54 97.7 F 63 16 125/77 95 01/05/24 19:39 71 14 126/59 97 01/05/24 19:24 72 14 128/59 95 01/05/24 19:09 97.6 F 80 16 133/60 99 01/05/24 16:30 98.6 F 65 16 137/62 96 01/05/24 15:00 98.1 F 60 17 119/72 97 01/05/24 14:00 16 Intake and Output 01/05/24 01/06/24 01/06/24 22:59 06:59 14:59 Intake Total 1750 Output Total 75 Balance 1675 Intake: IV 1750 Output: Estimated Blood Loss 75 Other: # Voids 1 1 Weight 58.967 kg GENERAL DESCRIPTION: Elderly female lying in bed, no distress. No tachypnea or accessory muscle of respiration use. HEENT: Shows Pallor , no scleral icterus. Oral mucous membrane is dry. No pharyngeal erythema or thrush NECK: Trachea central, no thyromegaly. LUNGS: Unlabored breathing. Clear to auscultation anteriorly. No wheeze or crackle. HEART: S1, S2, regular rate and rhythm. No loud murmur ABDOMEN: Soft, no tenderness , guarding or rigidity, no organomegaly EXTREMITIES: No edema of feet. SKIN: Scalp wound is currently stitched no drainage was noticed NEUROLOGICAL: The patient is awake, alert, oriented x3, mood and affect normal. Results CBC & Chem 7: 01/06/24 06:40 01/03/24 10:25 Labs: Abnormal Lab Results - Last 24 Hours (Table) 01/05/24 Range/Units 07:06 RBC 3.94 L (4.10-5.20) X 10*6/uL Neutrophils # 1.71 L (1.80-7.70) X 10*3/uL Microbiology - Last 24 Hours (Table) 01/03/24 10:40 Blood Culture Gram Stain - Preliminary Blood Blood Culture - Preliminary Providencia rettgeri 01/03/24 10:25 Blood Culture Gram Stain - Preliminary Blood Blood Culture - Preliminary Providencia rettgeri Group D Enterococcus Molecular ID Assessment and Plan (1) Scalp abscess Current Visit: Yes Status: Acute Code(s): L02.811 - CUTANEOUS ABSCESS OF HEAD [ANY PART, EXCEPT FACE] SNOMED Code(s): 76529169 (2) Positive blood culture Current Visit: Yes Status: Acute Priority: High Code(s): R78.81 - BACTERE ROSSY SNOMED Code(s): 805955370 Plan: 1patient with polymicrobial bacteremia with a blood culture positive for providentia as well as group D Enterococcus source with likely right parietal abscess s/p surgical drainage and unfortunately no culture done from the abscess cavity 2-blood cultures will be document clearance of bacteremia 3-discontinue Rocephin 4-start the patient on Zosyn while waiting for sensitivity on the gram-negative Multiple questions Answered We will follow on clinical condition and cultures to further adjust medication if needed Thank you for this consultation we will follow the patient along with you Dictation was produced using [employer] software. please excuse any grammatical, word or spelling errors. Time with Patient: Greater than 30
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
--- NOTE | 2024-01-07 07:56 | P.PN ---
Subjective Progress Note Date: 01/07/24 CHIEF COMPLAINT: Tumor of the head HISTORY OF PRESENT ILLNESS: The patient is a 78-year-old female status post resection of right parietal scalp tumor. She reports pain is better controlled this morning. ROS: No reports of nausea and vomiting. No fevers or chills. PHYSICAL EXAM: VITAL SIGNS: Reviewed CONSTITUTIONAL: Well developed and in no acute distress. EYES: Conjuctivae without sclera icterus. Extraocular movements grossly intact. HEAD, EARS, NOSE, THROAT: Moist buccal mucosa. Head is atraumatic, normocephalic. Hears conversational speech. No nasal drainage. Incision intact. Dried serosanguineous dressing along the hair. RESPIRATORY: Non-labored respirations and equal bilateral excursions. CARDIOVASCULAR: Palpable 2+ radial pulses. ABDOMEN: Nontender MUSCULOSKELETAL: No gross deformity of the lower extremities noted. No clubbing. No cyanosis. SKIN: Good skin turgor. Well perfused. NEUROLOGIC: Cranial nerves II through XII grossly intact. No focal or lateralizing signs. PSYCH: Appropriate affect. Alert and oriented to person, place and time. CLINICAL LABS: Reviewed. WBC normal CULTURES: Positive blood cultures with current repeat cultures pending ASSESSMENT: 1. 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 Bacteremia PLAN: 1. Discussion with nursing performed with daily hair wash with baby shampoo and application of bacitracin to incision. 2. Patient discharged on hold pending repeat blood cultures 3. Pathology pending of scalp tumor likely malignancy Objective - Vital Signs Vital signs: Vital Signs Temp 98.6 F 01/07/24 03:24 Pulse 87 01/07/24 03:24 Resp 18 01/07/24 03:24 BP 156/91 01/07/24 03:24 Pulse Ox 94 L 01/07/24 03:24 FiO2 Intake & Output 01/06/24 01/07/24 01/07/24 18:59 06:59 18:59 Other: # Voids 2 1 - Labs CBC & Chem 7: 01/06/24 06:40 01/03/24 10:25 Labs: Abnormal Lab Results - Last 24 Hours (Table) 01/06/24 Range/Units 06:40 RBC 3.76 L (4.10-5.20) X 10*6/uL Hct 36.1 L (37.2-46.3) % MCH 32.2 H (27.0-32.0) pg Microbiology - Last 24 Hours (Table) 01/03/24 10:40 Blood Culture Gram Stain - Final Blood Blood Culture - Final Providencia rettgeri 01/03/24 10:25 Blood Culture Gram Stain - Preliminary Blood Blood Culture - Preliminary Providencia rettgeri Group D Enterococcus Molecular ID
--- NOTE | 2024-01-07 12:22 | P.PN ---
Subjective Progress Note Date: 01/07/24 Principal diagnosis: Reason for follow-up is right parietal abscess and bacteremia Patient is a 78-year-old female presented to the hospital with right parietal area recurrent swelling and infection s/p surgical drainage blood culture positive Enterococcus and providentiaprompted this consultation. On today's evaluation that is 01/07/2024,the patient remains to be afebrile, patient is on room air not requiring supplemental oxygen and denies any shortness of breath no chest pain or cough.Patient denies having any nausea or vomiting, no abdominal pain pain to the right. LAD has decreased intensity complaining of some sore throat. No new labs obtained today repeat blood culture pending Objective - Vital Signs Vital signs: Vital Signs Temp 98.1 F 01/07/24 07:00 Pulse 80 01/07/24 07:00 Resp 15 01/07/24 07:00 BP 127/78 01/07/24 07:00 Pulse Ox 98 01/07/24 07:00 FiO2 Intake & Output 01/06/24 01/07/24 01/07/24 18:59 06:59 18:59 Intake Total 633 Balance 633 Intake: Oral 633 Other: # Voids 2 1 - Exam GENERAL DESCRIPTION: An elderly female lying in bed in no distress Right parietal incision intact no drainage RESPIRATORY SYSTEM: Unlabored breathing , decreased breath sounds at bases HEART: S1 S2 regular rate and rhythm , ABDOMEN: Soft , no tenderness EXTREMITIES: No edema feet - Labs CBC & Chem 7: 01/06/24 06:40 01/03/24 10:25 Labs: Microbiology - Last 24 Hours (Table) 01/03/24 10:40 Blood Culture Gram Stain - Final Blood Blood Culture - Final Providencia rettgeri 01/03/24 10:25 Blood Culture Gram Stain - Preliminary Blood Blood Culture - Preliminary Providencia rettgeri Group D Enterococcus Molecular ID Assessment and Plan (1) Scalp abscess Current Visit: Yes Status: Acute Code(s): L02.811 - CUTANEOUS ABSCESS OF HEAD [ANY PART, EXCEPT FACE] SNOMED Code(s): 87911406 (2) Positive blood culture Current Visit: Yes Status: Acute Priority: High Code(s): R78.81 - BACTEREMIA SNOMED Code(s): 807995864 Plan: 1patient with polymicrobial bacteremia with a blood culture positive for providentia as well as group D Enterococcus source with likely right parietal abscess s/p surgical drainage and unfortunately no culture done from the abscess cavity 2-blood cultures has been repeated to document clearance of bacteremia 3-patient to continue with Zosyn while waiting for repeat cultures may benefit from short course of IV antibiotic on discharge Dictation was produced using [employer] dictation software. please excuse any grammatical, word or spelling errors. Time with Patient: Less than 30
[2024-01-07 21:16] VITALS: RESP 18
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
--- NOTE | 2024-01-08 13:29 | P.PN ---
Subjective Progress Note Date: 01/08/24 Principal diagnosis: Reason for follow-up is right parietal abscess and bacteremia Patient is a 78-year-old female presented to the hospital with right parietal area recurrent swelling and infection s/p surgical drainage blood culture positive Enterococcus and providentiaprompted this consultation. On today's evaluation that is 01/08/2024, the patient continues to be afebrile, the patient is on room air and breathing comfortably, the Pt denies having any chest pain or cough, the patient denies having any abdominal pain no vomiting or any diarrhea patient pain to the right parietal area has improved complaining of some sore throat. Patient white count is 7.44 as of 01/06/2024 no blood work done today repeat blood culture has been negative so far Objective - Vital Signs Vital signs: Vital Signs Temp 98.0 F 01/08/24 07:00 Pulse 67 01/08/24 07:00 Resp 18 01/08/24 07:00 BP 118/75 01/08/24 07:00 Pulse Ox 97 01/08/24 07:00 FiO2 Intake & Output 01/07/24 01/08/24 01/08/24 18:59 06:59 18:59 Intake Total 751 118 Balance 751 118 Intake: Oral 751 118 Other: Voiding Method Toilet Toilet # Voids 2 2 # Bowel Movements 3 - Exam GENERAL DESCRIPTION: An elderly female lying in bed in no distress Right parietal incision intact no drainage RESPIRATORY SYSTEM: Unlabored breathing , decreased breath sounds at bases HEART: S1 S2 regular rate and rhythm , ABDOMEN: Soft , no tenderness EXTREMITIES: No edema feet - Labs CBC & Chem 7: 01/06/24 06:40 01/03/24 10:25 Labs: Microbiology - Last 24 Hours (Table) 01/03/24 10:25 Blood Culture Gram Stain - Final Blood Blood Culture - Final Providencia rettgeri Alpha Hemolytic Streptococcus Molecular ID 01/06/24 00:11 Blood Culture - Preliminary Blood 01/03/24 10:40 Blood Culture Gram Stain - Final Blood Blood Culture - Final Providencia rettgeri Assessment and Plan (1) Scalp abscess Current Visit: Yes Status: Acute Code(s): L02.811 - CUTANEOUS ABSCESS OF HEAD [ANY PART, EXCEPT FACE] SNOMED Code(s): 24498667 (2) Positive blood culture Current Visit: Yes Status: Acute Priority: High Code(s): R78.81 - BACTEREMIA SNOMED Code(s): 765055819 Plan: 1patient with polymicrobial bacteremia with a blood culture positive for providentia as well as group D Enterococcus which was subsequently switched over to Streptococcus by the micro lab, source with likely right parietal abscess s/p surgical drainage and unfortunately no culture done from the abscess cavity 2-blood cultures has been repeated to document clearance of bacteremia and so far negative 3-patient antibiotic has been switched over to Rocephin 2 g daily as of yesterday to continue while inpatient however patient may be able to finish therapy with oral Cipro x 2 weeks on discharge discussed with the WIRELESS MANAGER for medical team Dictation was produced using [employer] dictation software. please excuse any grammatical, word or spelling errors. Time with Patient: Less than 30
--- NOTE | 2024-01-08 14:36 | P.DS ---
Providers Date of admission: 01/05/24 08:47 Expected date of discharge: 01/08/24 Attending physician: Joaquim Recinos DO Consults: 01/03/24 12:55 Consult Physician Urgent Consulting Provider: Ap Jacobs Consult Reason/Comments: Medical management Do you want consulting provider notified?: Yes 01/04/24 11:44 Consult Physician Routine Consulting Provider: Dandy Lawrence Consult Reason/Comments: Soft tissue neoplasm of the scalp Do you want consulting provider notified?: Yes 01/05/24 12:06 Consult Physician Routine Consulting Provider: Leticia Flower Consult Reason/Comments: Scalp tumor Do you want consulting provider notified?: Already Contacted 01/05/24 22:57 Consult Physician Routine Consulting Provider: Elvira Love Consult Reason/Comments: positive blood cultures Do you want consulting provider notified?: Yes, Notify in am Primary care physician: Williams Martinez Hospital Course: Discharge diagnosis 1. Right parietal fungating mass with abscess, 3 cm 2. Dementia 3. Hypertensive heart disease 4. Leukocytosis on admission 5. Bacteremia Hospital course The patient is a 78-year-old female who presented to the hospital with large fungating necrotic tumor of the right parietal with maggots. She is status post excision of right parietal scalp tumor. Patient's pain is controlled. She is tolerating diet. She has been cleared by consulting physicians for discharge. She will be discharged with oral antibiotic. She is afebrile. She is stable for discharge. Physician Wire Coiner note has been reviewed by physician. Signing provider agrees with the documented findings, assessment, and plan of care. Patient Condition at Discharge: Stable Plan - Discharge Summary Discharge Rx Participant: Yes New Discharge Prescriptions: New Acetaminophen Tab [Tylenol] 1,000 mg PO Q6HR PRN #30 tablet PRN Reason: Pain Ciprofloxacin HCl [Cipro] 500 mg PO Q12HR 14 Days #28 tab No Action Losartan [Cozaar] 25 mg PO DAILY Vitamin B-12 100mcg Tab 100 mcg PO DAILY Haloperidol Decanoate [Haldol D] 50 mg IM Q30D Discharge Medication List Haloperidol Decanoate [Haldol D] 50 mg IM Q30D 01/03/24 [History] Losartan [Cozaar] 25 mg PO DAILY 01/03/24 [History] Vitamin B-12 100mcg Tab 100 mcg PO DAILY 01/03/24 [History] Acetaminophen Tab [Tylenol] 1,000 mg PO Q6HR PRN #30 tablet 01/08/24 [Rx] Ciprofloxacin HCl [Cipro] 500 mg PO Q12HR 14 Days #28 tab 01/08/24 [Rx] Follow up Appointment(s)/Referral(s): None,Stated [REFERRING] - 1-2 days Williams Martinez MD [Primary Care Provider] - 1-2 Days Leticia Flower MD [STAFF PHYSICIAN] - 01/20/24 Vikram Coffey [STAFF PHYSICIAN] - 1 Week Activity/Diet/Wound Care/Special Instructions: Wound care: daily hair wash with baby shampoo and application of bacitracin to incision. Discharge Disposition: TRANSFER TO SNF/ECF
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
[2024-01-08 15:28] VITALS: BP 98/64; PULSE 78; TEMP 98.3
== END 2024-01-08 16:35 | DRG 571 ==
LOC: EC 09:48 → SUPCPDRO 09:48 → 6NMEDSUR 12:55 → OBSVTOIN 01-05 08:47
PROVIDERS: ADMIT Surgery; ATTEND Surgery
PROC: 0JB00ZZ Excision of Scalp Subcutaneous Tissue and Fascia, Open Approach (ICD-10-PCS; principal; 2024-01-05 08:35)
DX: L02.811 Cutaneous abscess of head [any part, except face] (principal); R78.81 Bacteremia; I10 Essential (primary) hypertension; B87.0 Cutaneous myiasis; R26.89 Other abnormalities of gait and mobility; B95.2 Enterococcus as the cause of diseases classified elsewhere; F03.90 Unspecified dementia, unspecified severity, without behavioral disturbance, psychotic disturbance, mood disturbance, and anxiety; M19.91 Primary osteoarthritis, unspecified site; Z79.899 Other long term (current) drug therapy; Z91.014 Allergy to mammalian meats; Z88.2 Allergy status to sulfonamides; Z91.011 Allergy to milk products
CPT/HCPCS: 36415; 80053; 83605; 85025; 87040; 87077; 87186; 96365; 99285